=== PATIENT | male | born 1965 | race Caucasian/White ===

== ENCOUNTER → 2019-09-03 13:12 | Outpatient (BNVA) | payer MEDICARE, SELFPAY | PROVIDERS: Family Provider Family Medicine; PCP Family Medicine; Visit Provider Counselor Professional | DX: F33.3 Major depressive disorder, recurrent, severe with psychotic symptoms (principal) | CPT/HCPCS: 90791 ==

== ENCOUNTER → 2021-06-12 14:58 | Outpatient (BNVA) | payer MEDICARE, SELFPAY | PROVIDERS: Family Provider Family Medicine; PCP Family Medicine; Visit Provider Family Medicine | DX: I10 Essential (primary) hypertension (principal); G89.4 Chronic pain syndrome; F33.3 Major depressive disorder, recurrent, severe with psychotic symptoms; M54.30 Sciatica, unspecified side; F41.9 Anxiety disorder, unspecified; R60.0 Localized edema; M54.31 Sciatica, right side; Z13.220 Encounter for screening for lipoid disorders; Z13.6 Encounter for screening for cardiovascular disorders | CPT/HCPCS: 80053; 80061; 83721; 83735 ==

== ENCOUNTER 2022-02-21 08:59 | Emergency (ER) | payer MEDICARE, MEDICAID, SELFPAY ==
[2022-02-21] VITALS (8 sets, daily range): BP systolic 175–189; BP diastolic 105–125; PULSE 82–104; RESP 18–25; TEMP 36.6; O2SAT 85–97; BMI 45.6
--- NOTE | 2022-02-21 09:56 | XR_ITS ---
WS: [id number] Portable AP upright chest, 02/21/2022 Clinical Data: sough and sob Comparison: Portable chest, 01/17/2018. Findings: No nodules, masses or effusions are seen. The heart is large. The pulmonary vascularity is not increased. No pneumonia or pneumothorax is seen. There are monitor leads on the chest. XR/XR chest 1V portable [id number] Impression: Cardiomegaly.
--- NOTE | 2022-02-21 09:59 | W.ED.SOB ---
Documented by User: WENDY Garcia 02/22/22 06:16 HPI - SOB/Dyspnea General: Chief Complaint: Shortness of Breath/Dyspnea Stated Complaint: SOB, congestion Time Seen by Provider: 02/21/22 09:26 History of Present Illness: HPI Narrative: Patient is a 56-year-old male comes to the ED with shortness of breath and cough. Symptoms started approximately 4 days ago. He describes having nasal drainage and congestion along with cough that is productive with clear and sometimes greenish-yellow sputum. Endorses having shortness of breath. Shortness of breath worsens with any exertion. Patient endorses being around some sick contacts recently. He endorses being a daily tobacco smoker. He also reports having swelling in his left leg for the past couple weeks. Denies any history of CHF, COPD or asthma. Denies any chest pain, fevers, body aches, nausea/vomiting, bladder or bowel symptoms. Patient has a history of hypertension but says he has been out of his meds for a little while and needs to get his prescriptions refilled. Associated symptoms: Deny abdominal pain, chest pain, fever(s), nausea, orthopnea, palpitations or vomiting Review of Systems Const: Denies: fever(s), chills or fatigue Eyes: Denies: change in vision or eye discomfort ENMT: Reports: nasal discharge and nasal congestion; Denies: throat pain or odynophagia Card: Denies: chest pain, palpitations, edema, swelling of feet/ankles, dyspnea on exertion or orthopnea Resp: Reports: dyspnea and productive cough; Denies: non-productive cough GI: Denies: abdominal pain, nausea, vomiting, diarrhea, constipation or hematochezia : Denies: flank pain, difficulty urinating, dysuria or hematuria Musc: Denies: neck pain, back pain or extremity swelling Skin/Breast: Denies: rash or new lesions Neuro: Denies: headache(s), numbness in extremities or weakness in extremities PFS ED PFSH: Medical History Major depressive disorder, recurrent, severe with psychotic symptoms Nicotine dependence, cigarettes, with other nicotine-induced disorders Poor compliance with medication Social History Smoking and tobacco status: current every day smoker (1 PPD ) cigarettes Packs smoked per day: 1 Current gender identity: Male Physical Exam Const: COMMON NORMALS: patient oriented x3 and alert GENERAL APPEARANCE: cooperative HENMT: COMMON NORMALS: normocephalic HEAD & SCALP: normocephalic MOUTH: Normal oral and palatal mucosa present THROAT: posterior oropharynx normal and uvula midline Neck/C-Spine: COMMON NORMALS: supple GENERAL: Yes normal visual inspection Resp: COMMON NORMALS: normal respiratory effort, No retractions and No use of accessory muscles EFFORT & INSPECTION: Yes Actively coughing moist AUSCULTATION: wheezes expiratory wheezes and throughout and diminished lung sounds bilateral in the lower lung ryan Cardio: COMMON NORMALS: regular rate, regular rhythm, S1 normal heart sound present, S2 normal heart sound present, No gallops present (Cardio), No clicks present (Cardio), No murmurs present (Cardio) and Peripheral pulses 2+ throughout RATE: regular rate RHYTHM: regular rhythm HEART SOUNDS: S1 normal heart sound present and S2 normal heart sound present PERIPHERAL PULSES: Peripheral pulses 2+ throughout GI: COMMON NORMALS: Normal to inspection, nondistended, normoactive bowel sounds present, Soft to palpation, non-tender and no masses PALPATION: Yes Soft to palpation : COMMON NORMALS: Yes no CVA tenderness BLADDER/KIDNEY EXAM: Yes no CVA tenderness Back/Pelvis: COMMON NORMALS: no CVA tenderness Extremity: GENERAL: Yes edema (Right leg-1+ pitting edema, left leg 2+ pitting edema) Neuro: COMMON NORMALS: patient oriented x3 SENSORIUM/ORIENTATION: Yes alert GAIT: Yes Normal gait present Skin: GENERAL SKIN EXAM: dry skin Course Vital Signs: Vital signs: Vital Signs Temperature 97.8 F 02/21/22 09:50 Pulse Rate 90 02/21/22 15:25 Respiratory Rate 20 H 02/21/22 15:25 Blood Pressure 189/105 02/21/22 13:00 Pulse Oximetry 93 02/21/22 15:25 Oxygen Delivery Me thod 02/21/22 11:07 Oxygen Flow Rate 2 02/21/22 12:09 MDM - SOB/Dyspnea Medical Decision Making Patient is a 56-year-old male comes to the ED with shortness of breath and cough. He has upper respiratory symptoms but denies any chest pain. Patient is a current tobacco smoker. He has a history of hypertension and has been out of his blood pressure medications as well needs a refill. Patient requiring 2 L of oxygen and O2 saturation is 92%. The rest of vitals are stable. Exam shows diminished lung sounds at bases bilaterally and some expiratory wheezing throughout the lungs. He has 1+ pitting edema to right leg and 2+ pitting edema in the left leg. Patient was actively coughing during exam. CBC and CMP were unremarkable. Troponin negative. Normal BNP and D-dimer. Chest x-ray shows no pneumonia but notes cardiomegaly. EKG showed no acute findings. Ultrasound venous duplex of left lower extremity showed no DVTs. Influenza and COVID were both negative. Patient was given DuoNeb breathing treatment here in the ED along with Solu-Medrol and an antibiotic. Home O2 eval was performed and patient qualified for 2 L of oxygen continuously at home. An order was placed with home and patient was set up with oxygen. He is diagnosed with bronchitis and discharged home with a prescription for albuterol inhaler, Medrol Dosepak and antibiotic. Told to follow-up PCP in the next week for reevaluation. Strict return to ED precautions given. Patient understood and agreed with plan. Lab Data I reviewed the patient's lab results. : 02/21/22 10:03 02/21/22 10:03 Labs/Radiology: Radiology Impressions Chest X-Ray 02/21/22 09:56 Impression: Cardiomegaly. Laboratory Results WBC 8.1 10^3/uL (4.0-10.0) 02/21/22 10:03 RBC 4.62 10^6/uL (4.1-5.3) 02/21/22 10:03 Hgb 14.4 g/dL (11.7-16.6) 02/21/22 10:03 Hct 45.9 % (42.0-52.0) 02/21/22 10:03 MCV 99.4 fl (80-94) H 02/21/22 10:03 MCH 31.2 pg (28.0-34.0) 02/21/22 10:03 MCHC 31.4 g/dL (30.0-36.0) 02/21/22 10:03 RDW 14.2 % (12.1-15.1) 02/21/22 10:03 Plt Count 221 10^3/cmm (130-400) 02/21/22 10:03 MPV 11.4 fL (7.4-10.4) H 02/21/22 10:03 Neut % (Auto) 74.1 % 02/21/22 10:03 Lymph % (Auto) 16.6 % 02/21/22 10:03 [place] % (Auto) 7.0 % 02/21/22 10:03 Eos % (Auto) 1.4 % 02/21/22 10:03 Baso % (Auto) 0.5 % 02/21/22 10:03 Neut # (Auto) 6.00 10^3/uL (1.8-7.7) 02/21/22 10:03 Lymph # (Auto) 1.3 10^3/uL (0.8-4.8) 02/21/22 10:03 [place] # (Auto) 0.6 10^3/uL (0.2-0.9) 02/21/22 10:03 Eos # (Auto) 0.1 10^3/uL (0.0-0.8) 02/21/22 10:03 Baso # (Auto) 0.0 10^3/uL (0.0-0.1) 02/21/22 10:03 Nucleated RBC % (auto) 0 % 02/21/22 10:03 Nucleated RBCs # 0.0 /100WBC 02/21/22 10:03 D-Dimer <= 0.27 ug/mIFEU (0-0.59) 02/21/22 10:03 Sodium 139 mmol/L (136-145) 02/21/22 10:03 Potassium 4.6 mmol/L (3.5-5.1) 02/21/22 10:03 Chloride 100 mmol/L (98-107) 02/21/22 10:03 Carbon Dioxide 29 mmol/L (22-29) 02/21/22 10:03 Anion Gap 14.6 (5-19) 02/21/22 10:03 BUN 13 mg/dL (6-20) 02/21/22 10:03 Creatinine 0.7 mg/dL (0.7-1.2) 02/21/22 10:03 GFR Calculation 116.7 mL/min (90-130) 02/21/22 10:03 Glucose 157 mg/dL (65-115) H 02/21/22 10:03 Calculated Osmolality 291 mOsm/kg (285-295) 02/21/22 10:03 Calcium 9.6 mg/dL (8.5-10.5) 02/21/22 10:03 Total Bilirubin 0.2 mg/dL (0.15-1.2) 02/21/22 10:03 AST 16 U/L (0-40) 02/21/22 10:03 ALT 22 U/L (0-41) 02/21/22 10:03 Alkaline Phosphatase 85 U/L (40-130) 02/21/22 10:03 Troponin T Baseline 12 ng/L (0-15) 02/21/22 10:03 NT-Pro-B Natriuret Pep 44 pg/mL (0-125) 02/21/22 10:03 Total Protein 6.9 g/dL (6.6-8.7) 02/21/22 10:03 Albumin 4.0 g/dL (3.5-5.2) 02/21/22 10:03 Globulin 2.9 g/dL (1.3-4.6) 02/21/22 10:03 Lipase 34 U/L (13-60) 02/21/22 10:03 Influenza Type A Ag negative (Negative) 02/21/22 10:15 Influenza Type B Ag negative (Negative) 02/21/22 10:15 SARS-CoV-2 Ag (Rapid) negative (Negative) 02/21/22 10:15 EKG Data EKG 1: EKG Interpretation Date: 02/21/22 Interpretation: Normal sinus rhythm. Sinus rhythm, [address] segment ovation or depression seen. Discharge Plan Discharge Patient Disposition: Home Clinical Impression: Bronchitis, Hypoxemia Hypertension Qualifiers: Hypertension type: unspecified Qualified Code(s): I10 - Essential (primary) hypertension Condition: Stable Prescriptions: New doxycycline hyclate 100 mg capsule 100 mg PO BID 10 Days Qty: 20 0RF albuterol sulfate 90 mcg/actuation HFA aerosol inhaler 2 inh inhalation Q6H PRN (Reason: shortness of breath or wheezing) Qty: 8.5 0RF Medrol (Magdy) 4 mg tablets,dose pack See Rx Instructions .ROUTE .COMPLEX Qty: 21 0RF Rx Instructions: orally per package directions metoprolol succinate 50 mg capsule,sprinkle,ER 24hr 50 mg PO DAILY Qty: 30 0RF lisinopril 30 mg tablet 30 mg PO DAILY Qty: 30 0RF furosemide 20 mg tablet 20 mg PO DAILY PRN (Reason: edema) Qty: 20 0RF No Action gabapentin 300 mg capsule 300 mg PO TID 30 Days Qty: 90 1RF buspirone 15 mg tablet 15 mg PO BID Discharge Orders: Discharge ED (Routine); Ordered 02/21/22 Ordered By: Wiley Valencia Other Ambulatory Orders: DME: Oxygen (Order) Location: None Selected Ordered By: Wiley Valencia Referrals: Marcia Gomez MD [Primary Care Provider] - Discharge Diet: Regular Discharge Activity: Increase activity as tolerated Patient Instructions: Using Oxygen at Home (ED), Acute Bronchitis (ED) Activity Restrictions/Additional Instructions: Follow-up with medical provider as directed in the next 3 to 5 days for reevaluation. Wear oxygen continuously at 2 L to help with any shortness of breath. Take medications as prescribed. Return to the ER or your medical provider if condition worsens. Please read and understand discharge instructions. Thank you for choosing [facility] for your healthcare needs today. Please realize this is an emergency room and that we are providing you with a medical screening exam and this may not be complete and all inclusive of all the testing and or work up that you may need to determine your ailment or severity of your illness. It is very important that you follow up as instructed or that you return to the Emergency Department should you have concerns or if your condition changes or worsens in any way. Coding Level of Care Code ED Business Intelligence Architect for [facility] Fwd Exam Comprehensive Documented by User: Robert Bullock DO 02/23/22 15:22 HPI - SOB/Dyspnea General: Chief Complaint: Shortness of Breath/Dyspnea Stated Complaint: SOB, congestion Time Seen by Provider: 02/21/22 09:26 PFS ED PFSH: Medical History Major depressive disorder, recurrent, severe with psychotic symptoms Nicotine dependence, cigarettes, with other nicotine-induced disorders Poor compliance with medication Social History Smoking and tobacco status: current every day smoker (1 PPD ) cigarettes Packs smoked per day: 1 Current gender identity: Male Course Vital Signs: Vital signs: Vital Signs Temperature 97.8 F 02/21/22 09:50 Pulse Rate 90 02/21/22 15:25 Respiratory Rate 20 H 02/21/22 15:25 Blood Pressure 189/105 02/21/22 13:00 Pulse Oximetry 93 02/21/22 15:25 Oxygen Delivery Me thod 02/21/22 11:07 Oxygen Flow Rate 2 02/21/22 12:09 MDM - SOB/Dyspnea Medical Decision Making Patient is a 56-year-old male comes to the ED with shortness of breath and cough. He has upper respiratory symptoms but denies any chest pain. Patient is a current tobacco smoker. He has a history of hypertension and has been out of his blood pressure medications as well needs a refill. Patient requiring 2 L of oxygen and O2 saturation is 92%. The rest of vitals are stable. Exam shows diminished lung sounds at bases bilaterally and some expiratory wheezing throughout the lungs. He has 1+ pitting edema to right leg and 2+ pitting edema in the left leg. Patient was actively coughing during exam. CBC and CMP were unremarkable. Troponin negative. Normal BNP and D-dimer. Chest x-ray shows no pneumonia but notes cardiomegaly. EKG showed no acute findings. Ultrasound venous duplex of left lower extremity showed no DVTs. Influenza and COVID were both negative. Patient was given DuoNeb breathing treatment here in the ED along with Solu-Medrol and an antibiotic. Home O2 eval was performed and patient qualified for 2 L of oxygen continuously at home. An order was placed with home and patient was set up with oxygen. He is diagnosed with bronchitis and discharged home with a prescription for albuterol inhaler, Medrol Dosepak and antibiotic. Told to follow-up PCP in the next week for reevaluation. Strict return to ED precautions given. Patient understood and agreed with plan. Chart reviewed and patient discussed with midlevel. Agree with assessment and plan. Lab Data : 02/21/22 10:03 02/21/22 10:03 Labs/Radiology: Radiology Impressions Chest X-Ray 02/21/22 09:56 Impression: Cardiomegaly. Laboratory Results WBC 8.1 10^3/uL (4.0-10.0) 02/21/22 10:03 RBC 4.62 10^6/uL (4.1-5.3) 02/21/22 10:03 Hgb 14.4 g/dL (11.7-16.6) 02/21/22 10:03 Hct 45.9 % (42.0-52.0) 02/21/22 10:03 MCV 99.4 fl (80-94) H 02/21/22 10:03 MCH 31.2 pg (28.0-34.0) 02/21/22 10:03 MCHC 31.4 g/dL (30.0-36.0) 02/21/22 10:03 RDW 14.2 % (12.1-15.1) 02/21/22 10:03 Plt Count 221 10^3/cmm (130-400) 02/21/22 10:03 MPV 11.4 fL (7.4-10.4) H 02/21/22 10:03 Neut % (Auto) 74.1 % 02/21/22 10:03 Lymph % (Auto) 16.6 % 02/21/22 10:03 [place] % (Auto) 7.0 % 02/21/22 10:03 Eos % (Auto) 1.4 % 02/21/22 10:03 Baso % (Auto) 0.5 % 02/21/22 10:03 Neut # (Auto) 6.00 10^3/uL (1.8-7.7) 02/21/22 10:03 Lymph # (Auto) 1.3 10^3/uL (0.8-4.8) 02/21/22 10:03 [place] # (Auto) 0.6 10^3/uL (0.2-0.9) 02/21/22 10:03 Eos # (Auto) 0.1 10^3/uL (0.0-0.8) 02/21/22 10:03 Baso # (Auto) 0.0 10^3/uL (0.0-0.1) 02/21/22 10:03 Nucleated RBC % (auto) 0 % 02/21/22 10:03 Nucleated RBCs # 0.0 /100WBC 02/21/22 10:03 D-Dimer <= 0.27 ug/mIFEU (0-0.59) 02/21/22 10:03 Sodium 139 mmol/L (136-145) 02/21/22 10:03 Potassium 4.6 mmol/L (3.5-5.1) 02/21/22 10:03 Chloride 100 mmol/L (98-107) 02/21/22 10:03 Carbon Dioxide 29 mmol/L (22-29) 02/21/22 10:03 Anion Gap 14.6 (5-19) 02/21/22 10:03 BUN 13 mg/dL (6-20) 02/21/22 10:03 Creatinine 0.7 mg/dL (0.7-1.2) 02/21/22 10:03 GFR Calculation 116.7 mL/min (90-130) 02/21/22 10:03 Glucose 157 mg/dL (65-115) H 02/21/22 10:03 Calculated Osmolality 291 mOsm/kg (285-295) 02/21/22 10:03 Calcium 9.6 mg/dL (8.5-10.5) 02/21/22 10:03 Total Bilirubin 0.2 mg/dL (0.15-1.2) 02/21/22 10:03 AST 16 U/L (0-40) 02/21/22 10:03 ALT 22 U/L (0-41) 02/21/22 10:03 Alkaline Phosphatase 85 U/L (40-130) 02/21/22 10:03 Troponin T Baseline 12 ng/L (0-15) 02/21/22 10:03 NT-Pro-B Natriuret Pep 44 pg/mL (0-125) 02/21/22 10:03 Total Protein 6.9 g/dL (6.6-8.7) 02/21/22 10:03 Albumin 4.0 g/dL (3.5-5.2) 02/21/22 10:03 Globulin 2.9 g/dL (1.3-4.6) 02/21/22 10:03 Lipase 34 U/L (13-60) 02/21/22 10:03 Influenza Type A Ag negative (Negative) 02/21/22 10:15 Influenza Type B Ag negative (Negative) 02/21/22 10:15 SARS-CoV-2 Ag (Rapid) negative (Negative) 02/21/22 10:15 Discharge Plan Discharge Patient Disposition: Home Clinical Impression: Bronchitis, Hypoxemia Hypertension Qualifiers: Hypertension type: unspecified Qualified Code(s): I10 - Essential (primary) hypertension Condition: Stable Prescriptions: New doxycycline hyclate 100 mg capsule 100 mg PO BID 10 Days Qty: 20 0RF albuterol sulfate 90 mcg/actuation HFA aerosol inhaler 2 inh inhalation Q6H PRN (Reason: shortness of breath or wheezing) Qty: 8.5 0RF Medrol (Magdy) 4 mg tablets,dose pack See Rx Instructions .ROUTE .COMPLEX Qty: 21 0RF Rx Instructions: orally per package directions metoprolol succinate 50 mg capsule,sprinkle,ER 24hr 50 mg PO DAILY Qty: 30 0RF lisinopril 30 mg tablet 30 mg PO DAILY Qty: 30 0RF furosemide 20 mg tablet 20 mg PO DAILY PRN (Reason: edema) Qty: 20 0RF No Action gabapentin 300 mg capsule 300 mg PO TID 30 Days Qty: 90 1RF buspirone 15 mg tablet 15 mg PO BID Discharge Orders: Discharge ED (Routine); Ordered 02/21/22 Ordered By: Wiley Valencia Other Ambulatory Orders: DME: Oxygen (Order) Location: None Selected Ordered By: Wiley Valencia Referrals: Marcia Gomez MD [Primary Care Provider] - Discharge Diet: Regular Discharge Activity: Increase activity as tolerated Patient Instructions: Using Oxygen at Home (ED), Acute Bronchitis (ED) Activity Restrictions/Additional Instructions: Follow-up with medical provider as directed in the next 3 to 5 days for reevaluation. Wear oxygen continuously at 2 L to help with any shortness of breath. Take medications as prescribed. Return to the ER or your medical provider if condition worsens. Please read and understand discharge instructions. Thank you for choosing [facility] for your healthcare needs today. Please realize this is an emergency room and that we are providing you with a medical screening exam and this may not be complete and all inclusive of all the testing and or work up that you may need to determine your ailment or severity of your illness. It is very important that you follow up as instructed or that you return to the Emergency Department should you have concerns or if your condition changes or worsens in any way. Coding Level of Care Code ED Business Intelligence Architect for [facility] Exam Comprehensive
--- NOTE | 2022-02-21 10:16 | USCV_ITS ---
Yung Schwartz Age: 56 Gender: M : 1965 Exam Date: 02/21/2022 10:41 Ordering Phys: Wiley Valencia Technologist: Teo Witt [place] [facility] [place]: left leg pitting edema PROCEDURES: Venous duplex imaging was performed in only the left lower extremity. The following venous structures were evaluated: common femoral vein, profunda vein, proximal portion of the greater saphenous vein, superficial femoral vein, and the popliteal vein. In addition, the posterior tibial and peroneal trunk were evaluated. Serial compression, augmentation maneuvers, and spectral Doppler flow evaluation were performed. FINDINGS: Normal 2-D Doppler and augmentation and compressibility throughout the lower extremity venous structures. Additional imaging through the proximal calf veins also reveals no thrombus. Limited evaluation of the greater saphenous vein is patent with no thrombus. CONCLUSIONS No DVT left lower extremity. Dr. Nevaeh Scott DO (Electronically Signed) Final Date: 21 February 2022 11:49 S
--- NOTE | 2022-02-21 10:19 | PC.NURSE ---
PT PLACED ON CONTINUOUS NIBP, SPO2, AND CM
[2022-02-21 10:20] LABS: Basophils % 0.5 %; Eosinophils # 0.1 10^3/uL (0.0-0.8); Eosinophils % 1.4 %; Hematocrit 45.9 % (42.0-52.0); Hemoglobin 14.4 g/dL (11.7-16.6); Lymphocytes # 1.3 10^3/uL (0.8-4.8); Lymphocytes % 16.6 %; Mean Corpuscular HGB Conc 31.4 g/dL (30.0-36.0); Mean Corpuscular Hemoglobin 31.2 pg (28.0-34.0); Mean Corpuscular Volume 99.4 fl (80-94); Mean Platelet Volume 11.4 fL (7.4-10.4); Monocytes # 0.6 10^3/uL (0.2-0.9); Neutrophils % 74.1 %; Nucleated Red Blood Cells % 0 %; Platelet Count 221 10^3/cmm (130-400); Red Blood Count 4.62 10^6/uL (4.1-5.3); Red Cell Distribution Width 14.2 % (12.1-15.1); White Blood Count 8.1 10^3/uL (4.0-10.0)
[2022-02-21] MEDS: ipratropium-albuterol 3 mL Neb 6 ML INHALATION (10:22)
[2022-02-21 10:36] LABS: Troponin(5th) Baseline 12 ng/L (0-15)
[2022-02-21 10:45] LABS: Alanine Aminotransferase 22 U/L (0-41); Alkaline Phosphatase 85 U/L (40-130); Aspartate Amino Transferase 16 U/L (0-40); Blood Urea Nitrogen 13 mg/dL (6-20); Calcium 9.6 mg/dL (8.5-10.5); Carbon Dioxide 29 mmol/L (22-29); Chloride 100 mmol/L (98-107); Globulin 2.9 g/dL (1.3-4.6); Glomerular Filtration Rate 116.7 mL/min (90-130); Glucose 157 mg/dL (65-115); Lipase 34 U/L (13-60); NT Pro B Type Natriuretic Pept 44 pg/mL (0-125); Osmolality Calculated 291 mOsm/kg (285-295); Sodium 139 mmol/L (136-145); Total Bilirubin 0.2 mg/dL (0.15-1.2); Total Protein 6.9 g/dL (6.6-8.7)
[2022-02-21 10:47] LABS: Anion Gap 14.6 (5-19); Potassium 4.6 mmol/L (3.5-5.1)
[2022-02-21 10:50] LABS: SARS Covid-2 Antigen negative (Negative)
[2022-02-21 11:15] LABS: Influenza A by IFA negative (Negative); Influenza B by IFA negative (Negative)
[2022-02-21 11:25] LABS: D Dimer <= 0.27 ug/mIFEU (0-0.59)
--- NOTE | 2022-02-21 11:57 | ECG_ITS ---
[facility] Test Date: 2022-02-21 Pat Name: Yung Schwartz Department: Room: Gender: Male Certified Teacher Assistant: : 1965 Requested By: Wiley aVlencia Order Number: [id number] Horowitz MD: Nalini Peterson M.D. Measurements Intervals [place] Rate: 87 P: 72 TN: 167 QRS: 105 QRSD: 104 T: 65 QT: 352 QTc: 425 Interpretive Statements SINUS RHYTHM WITH SINUS ARRHYTHMIA INCOMPLETE RIGHT BUNDLE BRANCH BLOCK POSSIBLE RIGHT VENTRICULAR HYPERTROPHY Compared to ECG 01/17/2018 17:04:15 No significant changes Electronically Signed On 02-22-2022 11:42:09 FACT CHECKER by Nalini Peterson M.D. [email or web address]
[2022-02-21] MEDS: doxycycline 100 mg Tablet PO (13:03)
[2022-02-21] MEDS: hyDRALAzine 25 mg Tablet PO (13:03)
== END 2022-02-21 15:26 | disposition home or self-care (01) ==
PROVIDERS: Emergency Provider Physician Assistant; PCP Family Medicine
DX: J40 Bronchitis, not specified as acute or chronic (principal); R09.02 Hypoxemia; I10 Essential (primary) hypertension; Z20.822 Contact with and (suspected) exposure to COVID-19; F17.210 Nicotine dependence, cigarettes, uncomplicated
CPT/HCPCS: 71045; 80053; 83690; 83880; 84484; 85025; 85378; 87426; 87804; 93005; 93971; 94640; 96374; 99285; J2930

== ENCOUNTER → 2022-05-02 12:22 | Outpatient (BNVA) | payer OTHER, SELFPAY | PROVIDERS: PCP Family Medicine; Visit Provider Psychiatry & Neurology Neurology | DX: Z79.899 Other long term (current) drug therapy (principal) | CPT/HCPCS: 80053; 80061; 82306; 82607; 83036; 83721; 84443; 85025 ==

== ENCOUNTER → 2024-07-20 12:14 | Outpatient (BNVA) | payer OTHER, SELFPAY ==
[2023-05-10 16:48] VITALS: BP 184/113; BMI 42.8
== END ==
PROVIDERS: PCP Family Medicine; Visit Provider Nurse Practitioner
DX: F33.3 Major depressive disorder, recurrent, severe with psychotic symptoms (principal)
CPT/HCPCS: 80061; 83036; 83721